=== PATIENT | male | born 1985 | race Caucasian/White ===

== ENCOUNTER 2017-04-09 11:38 | Emergency (ER) | payer SELFPAY ==
[2017-04-09 11:42] VITALS: BMI 36.2
--- NOTE | 2017-04-09 11:47 | DR.GENAD ---
HPI - PCP Primary Care Physician: NONE - HPI Comment HPI Comment: PATIENT WOKE UP THIS AN WITH PRECORDIAL CHEST PRESSURE 10/10 RADIATING TO LEFT ARM PIT ASSOCIATED WITH WEAKNESS. PAIN CONSTANT WITH INTWEMITTENT EXACERBATION. PAIN CURRENTLY PRESENT IN ED. HAVE SIGNIFICANT FAMILY HIST OF CAD. HIS MOM HAD TRIPLE BYPASS IN HER 30S. GRANDMOTHER ON MOTHERS SIDE IN HER 40S FROM [place]. SEVERAL MEMBERS OF HIS FAMILY WITH CAD. - Complaint/Symptoms Chief Complaint Doctors Comments: CHEST PAIN FOR SEVERAL HOURS. Chief Complaint:: PT HAVING CHEST PAIN THAT STARTED THIS MORNING - Nurses notes reviewed Nurses Notes Review: Yes - Source History Provided: Patient - Mode of Arrival Mode of Arrival: Ambulatory - Timing Onset of Chief Complaint: 04/09/17 Came on: Suddenly - Duration Duration: Constant Duration: Hours PMH - PMH Past Medical History: No Past Surgical History: No - Family History History of Family Medical Conditions: No - Social History Does patient currently use any type of tobacco product: No Have you used tobacco products in the last 12 months: No Type of Tobacco Use: None Does any household member use tobacco: No Alcohol Use: None Do you use any recreational Drugs:: No Lives With: Family Lives Where: Assisted Care - infectious screening In the last 2 months have you had wt loss of >10#?: NO Have you had fever, night sweats or hemotysis?: No Have you traveled outside the country in the last 6 months?: No Isolation: Standard ROS - Review of Systems Constitutional: Weakness, Fatigue Eyes: No Symptoms Reported ENTM: No Symptoms Reported Respiratoy: No Symptoms Reported Cardiovascular: Chest Pain Gastrointestinal/Abdominal: No Symptoms Reported Genitourinary: No Symptoms Reported Neurological: No Symptoms Reported Musculoskeletal: No Symptoms Reported Integumentary: No Symptoms Reported Hematologic/Lymphatic: No Symptoms Reported Endocrine: No Symptoms Reported All Other Systems: Reviewed and Negative PE - Vital Signs Vitals: Temperature 97.9 F Pulse Rate [Right Brachial] 60 Pulse Rate 70 Respiratory Rate 18 Blood Pressure [Right Arm] 135/77 Blood Pressure 182/105 O2 Sat by Pulse Oximetry 100 - General Limitations: No Limitations General Appearance: Alert - Head Head Exam: Normal Inspection - Eyes Eye exam: Normal Appearance - ENT ENT Exam: Normal External Ear Exam External Ear Exam: Normal External Inspection TM/Canal Exam: Bilateral Normal Nose Exam: Normal Nose Exam Mouth Exam: Normal Inspection Throat Exam: Normal Inspection - Neck Neck Exam: Trachea Midline. negative: Tenderness, Meningismus, Lymphadenopathy - Chest Chest Inspection: Symmetric Chest Wall Rise - Respiratory Respiratory Exam: Normal Lung Sounds Bilat Respiratory Exam: Bilateral Clear to Auscultation - Cardiovascular Cardiovascular Exam: Regular Rate, Normal Rhythm, Normal Heart Sounds - Abdominal Exam Abdominal Exam: Normal Bowel Sounds, Soft. negative: Tenderness - Extremities Extremities Exam: Normal Inspection - Back Back Exam: Normal Inspection - Neurologic Neurological Exam: Alert, Oriented X3, CN II-XII Intact, Normal Gait, Reflexes Normal. negative: Motor Sensory Deficit - Psychiatric Psychiatric Exam: Anxious - Skin Skin Exam: Normal Color MDM - Additional Information Additional Information Obtained From: Family - Differential Diagnosis Differential Diagnosis: CHEST PAIN Course - Treatment Treatment: SEE ORDERS. ASPIRIN AND S/L NITRO IN ED. PAIN RESOLVE. - Consultation Consultation Comments: DISCUSS PATIENT WITH DR. GANNON. HE WILL ADMIT PATIENT. - Education/Counseling Education/Counseling: Patient, Family, Education Educated On: Diagnosis ROR - Labs Reviewed Laboratory Results Reviewed?: Yes Result Diagrams: 04/09/17 12:03 04/09/17 12:03 Laboratory: WBC 7.7 X10^3/uL (3.6-10.0) 04/09/17 12:03 RBC 5.41 X10^6/uL (4.7-6.0) 04/09/17 12:03 Hgb 16.4 g/dL (13.5-18.0) 04/09/17 12:03 Hct 46.5 % (42.0-54.0) 04/09/17 12:03 MCV 85.9 fL (80.0-100.0) 04/09/17 12:03 MCH 30.4 pg (27.0-34.0) 04/09/17 12:03 MCHC 35.4 g/dL (33.0-35.0) H 04/09/17 12:03 RDW 13.7 % (11.6-16.5) 04/09/17 12:03 Plt Count 145 X10^3/uL (150.0-450.0) L 04/09/17 12:03 MPV 9.7 fL (7.4-11.0) 04/09/17 12:03 Neut % 58.8 % (42.0-75.0) 04/09/17 12:03 Lymph % 31.0 % (21.0-51.0) 04/09/17 12:03 Greenlee % 6.4 % (0.0-13.0) 04/09/17 12:03 Eos % 3.1 % (0.9-2.9) H 04/09/17 12:03 Baso % 0.7 % (0.2-1.0) 04/09/17 12:03 Neut # 4.5 x10^3/uL (2.2-4.8) 04/09/17 12:03 Lymph # 2.4 X10^3/uL (1.3-2.9) 04/09/17 12:03 Greenlee # 0.5 x10^3/uL (0.3-0.8) 04/09/17 12:03 Eos # 0.2 x10^3/uL (0.0-0.2) 04/09/17 12:03 Baso # 0.1 X10^3/uL (0.0-0.1) 04/09/17 12:03 Absolute Nucleated RBC 0.0 /100WBC 04/09/17 12:03 INR Target Range - 04/09/17 12:03 INR 0.92 (0.8-1.3) 04/09/17 12:03 PTT 30.3 SECONDS (22.9-36.5) 04/09/17 12:03 PTT Comment - 04/09/17 12:03 D-Dimer < 100 ng/mL (0-400) 04/09/17 12:03 Sodium 142 mmol/L (136-145) 04/09/17 12:03 Corrected Sodium TNP 04/09/17 12:03 Potassium 4.3 mmol/L (3.5-5.1) 04/09/17 12:03 Chloride 106 mmol/L (98-107) 04/09/17 12:03 Carbon Dioxide 31.3 mmol/L (21-32) 04/09/17 12:03 BUN 9 mg/dL (7-18) 04/09/17 12:03 Creatinine 1.02 mg/dL (0.70-1.30) 04/09/17 12:03 Est GFR (MDRD) Af Amer > 60 (>60) 04/09/17 12:03 Est GFR (MDRD) Non-Af > 60 (>60) 04/09/17 12:03 Glucose 97 mg/dL (65-99) 04/09/17 12:03 Calcium 9.5 mg/dL (8.5-10.1) 04/09/17 12:03 Corrected Calcium TNP 04/09/17 12:03 Magnesium 2.1 mg/dL (1.7-2.9) 04/09/17 12:03 Total Bilirubin 0.40 mg/dL (0.2-1.0) 04/09/17 12:03 AST 16 Units/L (15-37) 04/09/17 12:03 ALT 28 Units/L (12-78) 04/09/17 12:03 Alkaline Phosphatase 117 Units/L (46-116) H 04/09/17 12:03 Creatine Kinase 174 Units/L (39-308) 04/09/17 12:03 CK-MB (CK-2) 1.0 ng/mL (0-4.0) 04/09/17 12:03 CK/CKMB % Calc 0.6 % (<4) 04/09/17 12:03 Troponin I < 0.02 ng/mL (0-1.5) 04/09/17 12:03 Total Protein 7.7 g/dL (6.4-8.2) 04/09/17 12:03 Albumin 4.0 g/dL (3.4-5.0) 04/09/17 12:03 Globulin 3.7 g/dL (2.5-4.5) 04/09/17 12:03 Albumin/Globulin Ratio 1.1 Ratio (1.1-2.1) 04/09/17 12:03 Triglycerides 155 mg/dL (0-150) H 04/09/17 12:03 Cholesterol 172 mg/dL (0-200) 04/09/17 12:03 LDL Cholesterol, Calc 96 mg/dL (0-100) 04/09/17 12:03 HDL Cholesterol 45 mg/dL (40-60) 04/09/17 12:03 Cholesterol/HDL Ratio 3.8 (0.0-5.0) 04/09/17 12:03 H. pylori IgG Antibody Negative (NEGATIVE) 04/09/17 12:03 - XRAY XRAY Interpreted by: Radiologist XRAY Findings: REPORT DISCUSS WITH PATIENT. - EKG Rhythm: NSR (EKG NOTED) - Diagnosis Discharge Problem: Chest pain Qualifiers: Chest pain type: precordial pain Qualified Code(s): R07.2 - Precordial pain - Discharge Plan Disposition: 09 ADMITTED INPATIENT Condition: Stable - Follow ups/Referrals - Instructions
--- NOTE | 2017-04-09 12:02 | RAD ---
HISTORY: Chest pain Study: Chest one view Comparison: None Findings: The trachea is midline. The cardiac silhouette is unremarkable. The lungs are clear without focal i nfiltrate or effusion. The bony thorax is unremarkable. IMPRESSION: 1. No acute cardiopulmonary disease. Reported By:
[2017-04-09] MEDS ORDERED: NITROSTAT SL PRN (12:30)
[2017-04-09 12:32] LABS: BASOPHILS # (AUTO) 0.1 X10^3/uL (0.0-0.1); BASOPHILS % (AUTO) 0.7 % (0.2-1.0); EOSINOPHILS # (AUTO) 0.2 x10^3/uL (0.0-0.2); EOSINOPHILS % (AUTO) 3.1 % (0.9-2.9); HEMATOCRIT 46.5 % (42.0-54.0); HEMOGLOBIN 16.4 g/dL (13.5-18.0); LYMPHOCYTES # (AUTO) 2.4 X10^3/uL (1.3-2.9); MEAN CORPUSCULAR HEMOGLOBIN 30.4 pg (27.0-34.0); MEAN CORPUSCULAR HGB CONC 35.4 g/dL (33.0-35.0); MEAN CORPUSCULAR VOLUME 85.9 fL (80.0-100.0); MEAN PLATELET VOLUME 9.7 fL (7.4-11.0); MONOCYTES # (AUTO) 0.5 x10^3/uL (0.3-0.8); MONOCYTES % (AUTO) 6.4 % (0.0-13.0); NEUTROPHILS # (AUTO) 4.5 x10^3/uL (2.2-4.8); NEUTROPHILS % (AUTO) 58.8 % (42.0-75.0); PLATELET COUNT 145 X10^3/uL (150.0-450.0); RED BLOOD COUNT 5.41 X10^6/uL (4.7-6.0); RED CELL DISTRIBUTION WIDTH 13.7 % (11.6-16.5); WHITE BLOOD COUNT 7.7 X10^3/uL (3.6-10.0)
[2017-04-09 12:36] LABS: BLOOD UREA NITROGEN 9 mg/dL (7-18); CALCIUM 9.5 mg/dL (8.5-10.1); CARBON DIOXIDE 31.3 mmol/L (21-32); CHLORIDE 106 mmol/L (98-107); CREATININE 1.02 mg/dL (0.70-1.30); GLUCOSE 97 mg/dL (65-99); SODIUM 142 mmol/L (136-145); TROPONIN I < 0.02 ng/mL (0-1.5); eGFR BLACK RACES > 60 (>60); eGFR NON BLACK RACES > 60 (>60)
[2017-04-09 12:40] LABS: ALANINE AMINOTRANSFERASE 28 Units/L (12-78); ALKALINE PHOSPHATASE 117 Units/L (46-116); ASPARTATE AMINO TRANSFERASE 16 Units/L (15-37); CHOL/HDL RATIO 3.8 (0.0-5.0); CHOLESTEROL 172 mg/dL (0-200); CKMB % 0.6 % (<4); CREATINE KINASE 174 Units/L (39-308); HDL CHOLESTEROL 45 mg/dL (40-60); MAGNESIUM 2.1 mg/dL (1.7-2.9); TOTAL PROTEIN 7.7 g/dL (6.4-8.2); TRIGLYCERIDES 155 mg/dL (0-150)
[2017-04-09 12:44] LABS: D DIMER < 100 ng/mL (0-400)
[2017-04-09] MEDS ORDERED: ASPIRIN 81 MG CHEWTAB PO SCH (13:00)
[2017-04-09] MEDS ORDERED: MORPHINE SULFATE INJ 2 MG IVP PRN (13:32)
[2017-04-09] MEDS ORDERED: ZOFRAN INJ 4 MG VIAL IVP PRN (13:38)
--- NOTE | 2017-04-09 15:31 | US ---
HISTORY: Epigastric pain Study: Right upper quadrant ultrasound Comparison: None Technique: Multiple grayscale sonographic images were obtained. Findings: The liver was normal in size and configuration and without cysts, mass, or biliary ductal dilatation. Cholelithiasis is present. There is mild thickening of the gallbladder wall but no evidence for intr amural or pericholecystic fluid. The common duct measured 5.4 millimeters. The right kidney measured 9.1 x 5.5 x 6.1 centimeters and demonstrated no solid masses, hydronephrosis, stones, or perinephric fluid collections. The pancreas was not well visualized. IMPRESSION: Cholelithiasis with mild gallbladder wall thickening. Developing cholecystitis cannot be excluded. Cl inical correlation is recommended. Nuclear medicine biliary scan could be obtained if clinically conor cated. Reported By:
[2017-04-09] MEDS: NITRO-BID OINT 2% Multi-Dose tube TD SCH ×2 (15:33→20:14)
--- NOTE | 2017-04-09 18:37 | DR.CONSULT ---
Consult - Consultation for Day of: Date: 04/09/17 - Chief Complaint Chief Complaint: Left chest pain. - Allergies Allergies/Adverse Reactions: Allergies Allergy/AdvReac Type Severity Reaction Status Date / Time No Known Drug Allergies Allergy Verified 04/09/17 11:38 - History of Present Illness History of Present Illness: The patient is a 31 yo M who presented to the ER this am with left chest pain. The patient reports the pain woke him this morning. (-) N/V/cough. The patient has a significant f/h early CAD with mother having disease in her 30's requiring CABG. (-) SOB. The patient is a production truck driver. D.dimer testing < 100 in ER. The patient reports decrease in pain with nitroglycerin. (-) dysphagia but (+) h/o GERD. Currently, cardiac w/ u is (-). An abdominal u/s was obtained that demonstrates cholelithiasis and possible cholecystitis. The patient denies RUQ pain or intolerance to fatty foods. - Past Medical History Past Medical History: GERD - Past Surgical History Surgical History: No History - Family History Family Medical History: Diabetes Mellitus, Coronary Artery Disease - Social History Does patient currently use any type of tobacco product: No Have you used tobacco products in the last 12 months: No Type of Tobacco Use: None Does any household member use tobacco: Yes Alcohol Use: Occasionally Drug Use: None - Medications Home Medications: NK [NK] 04/09/17 [History Confirmed 04/09/17] - Review of Systems Constitutional: No Symptoms Reported Eyes: No Symptoms Reported ENT: No Symptoms Reported Respiratory: No Symptoms Reported Cardiovascular: Chest Pain Gastrointestinal: No Symptoms Reported Genitourinary: No Symptoms Reported Musculoskeletal: No Symptoms Reported Skin: No Symptoms Reported Neurological: No Symptoms Reported - Physical Exam Vital Signs: Temperature 98.2 F Pulse Rate [Right Brachial] 70 Pulse Rate 70 Respiratory Rate 20 Blood Pressure [Right Arm] 146/84 Blood Pressure 182/105 O2 Sat by Pulse Oximetry 97 Oriented: Normal Eyes: Normal Throat: Normal Respiratory: Clear Throughout Cardiovascular: Normal Auscultation: Bowel Sounds: Normal Palpation: Normal Tenderness: Normal Skin: Normal Musculoskeletal: Normal Psychiatric: Normal Mood Description: Calm Affect: Normal Speech Pattern: Clear, Appropriate - Plan Plan: 31 yo M with cholelithiasis and left chest pain. Unclear etiology. Pain improved with nitro. (-) h/o nausea or RUQ pain. Pain was not associated with PO intake. Imaging noted. Initial concerns for PE less with (-) d.dimer. WBC wnl. On exam, NTTP RUQ and (-) Cardoza's sign. Recommend continued cardiac monitoring and check HIDA. Will follow with you.
[2017-04-09 21:10] LABS: CKMB % 0.8 % (<4); CREATINE KINASE 131 Units/L (39-308); CREATINE KINASE MB < 1.0 ng/mL (0-4.0); TROPONIN I < 0.02 ng/mL (0-1.5)
[2017-04-09] MEDS ORDERED: TYLENOL 325 MG TAB PO PRN (22:18)
[2017-04-09] MEDS: NORCO 5/325 MG TAB PO PRN (22:50)
[2017-04-10] MEDS: NITRO-BID OINT 2% Multi-Dose tube TD SCH ×5 (02:13→22:21)
[2017-04-10 03:02] LABS: BASOPHILS # (AUTO) 0.1 X10^3/uL (0.0-0.1); BASOPHILS % (AUTO) 0.5 % (0.2-1.0); EOSINOPHILS # (AUTO) 0.3 x10^3/uL (0.0-0.2); EOSINOPHILS % (AUTO) 2.3 % (0.9-2.9); HEMATOCRIT 43.2 % (42.0-54.0); HEMOGLOBIN 15.1 g/dL (13.5-18.0); LYMPHOCYTES # (AUTO) 2.7 X10^3/uL (1.3-2.9); MEAN CORPUSCULAR HEMOGLOBIN 29.9 pg (27.0-34.0); MEAN CORPUSCULAR VOLUME 85.4 fL (80.0-100.0); MEAN PLATELET VOLUME 9.9 fL (7.4-11.0); MONOCYTES # (AUTO) 0.8 x10^3/uL (0.3-0.8); MONOCYTES % (AUTO) 6.7 % (0.0-13.0); NEUTROPHILS # (AUTO) 7.5 x10^3/uL (2.2-4.8); NEUTROPHILS % (AUTO) 66.5 % (42.0-75.0); PLATELET COUNT 163 X10^3/uL (150.0-450.0); RED BLOOD COUNT 5.06 X10^6/uL (4.7-6.0); RED CELL DISTRIBUTION WIDTH 13.3 % (11.6-16.5); WHITE BLOOD COUNT 11.2 X10^3/uL (3.6-10.0)
[2017-04-10 03:14] LABS: ALANINE AMINOTRANSFERASE 26 Units/L (12-78); ALBUMIN 3.6 g/dL (3.4-5.0); ALKALINE PHOSPHATASE 94 Units/L (46-116); ASPARTATE AMINO TRANSFERASE 15 Units/L (15-37); BLOOD UREA NITROGEN 8 mg/dL (7-18); CALCIUM 8.8 mg/dL (8.5-10.1); CARBON DIOXIDE 26.7 mmol/L (21-32); CHLORIDE 106 mmol/L (98-107); CREATININE 0.99 mg/dL (0.70-1.30); GLUCOSE 105 mg/dL (65-99); SODIUM 143 mmol/L (136-145); TOTAL PROTEIN 6.8 g/dL (6.4-8.2); eGFR BLACK RACES > 60 (>60); eGFR NON BLACK RACES > 60 (>60)
[2017-04-10 03:29] LABS: CKMB % 0.9 % (<4); CREATINE KINASE 112 Units/L (39-308); CREATINE KINASE MB < 1.0 ng/mL (0-4.0); TROPONIN I < 0.02 ng/mL (0-1.5)
--- NOTE | 2017-04-10 09:05 | DR.H&P ---
H&P - History & Physical for Day of: H&P Date: 04/09/17 - Chief Complaint Chief Complaint: CHEST PAIN - Allergies Allergies/Adverse Reactions: Allergies Allergy/AdvReac Type Severity Reaction Status Date / Time No Known Drug Allergies Allergy Verified 04/09/17 11:38 - History of Present Illness History of Present Illness: IS A 31 YEAR OLD MALE WHO PRESENTED TO THE EMERGENCY ROOM WITH COMPLAINTS OF CHEST PAIN THAT BEGAN 3-4 HOURS PRIOR TO ARRIVING AT ER. HE REPORTS RADIATION TO LEFT ARM PIT AND WEAKNESS. HE REPORTS CONSTANT, MILD PAIN THAT WORSENS AT TIMES. PATIENT'S FAMILY HAS A KNOWN HISTORY OF CARDIAC DISEASE. PATIENT'S MOTHER AND GRANDMOTHER IN THEIR 40S FROM [place]. HE ALSO REPORTS COMPLAINTS OF RUQ ABDOMINAL PAIN. ON ARRIVAL TO ER, VITALS WERE 97.9-70-20-100%-185/105. PATIENT DOES NOT HAVE A KNOWN HISTORY OF HTN. CBC WNL EXCEPT MCHC 35.4, PLT COUNT 145, EOS% 3.1. CMP WNL EXCEPT ALKALINE PHOSPHATASE 117, TRIGLYCERIDES 155. H-PYLORI NEGATIVE. CARDIAC ENZYMES WNL. EKG REPORTS SINUS RHYTHM WITH RATE OF 68. A GALLBLADDER US WAS OBTAINED. IT REPORTED CHOLELITHIASIS WITH MILD GALLBLADDER WALL THICKENING. CHEST XRAY NEGATIVE. HE WAS GIVEN NITROGLYCERINE AND ASPIRIN IN ER. HE REPORTED DECREASE IN PAIN WITH NITROGLYCERINE. WE ADMITTED THE PATIENT FOR FURTHER TREATMENT AND EVALUATION. WE PLAN TO CONTINUE TO MONITOR SERIAL CARDIAC ENZYMES AND EKG, CONSULT WITH , START MORPHINE 4MG IV Q6H PRN, ASPIRIN 325MG DAILY, AND NITRO FOR CHEST PAIN. WE WILL RECHECK LABS AND FOLLOW UP WITH PATIENT IN AM. - Past Medical History Past Medical History: GERD - Past Surgical History Surgical History: No History - Family History Family Medical History: Diabetes Mellitus, Coronary Artery Disease - Social History Does patient currently use any type of tobacco product: No Have you used tobacco products in the last 12 months: No Type of Tobacco Use: None Does any household member use tobacco: Yes Alcohol Use: Occasionally Drug Use: None - Medications Home Medications: NK [NK] 04/09/17 [History Confirmed 04/09/17] - Review of Systems Constitutional: Weakness Eyes: No Symptoms Reported ENT: No Symptoms Reported Respiratory: No Symptoms Reported Cardiovascular: Chest Pain, See HPI Gastrointestinal: Abdominal Pain Genitourinary: No Symptoms Reported Musculoskeletal: No Symptoms Reported Skin: No Symptoms Reported Neurological: No Symptoms Reported - Physical Exam Vital Signs: Temperature 98.1 F Pulse Rate [Right Brachial] 68 Pulse Rate 70 Respiratory Rate 20 Blood Pressure [Right Arm] 114/68 Blood Pressure 182/105 O2 Sat by Pulse Oximetry 97 Oriented: Normal Eyes: Normal Ear: Normal Nose: Normal Throat: Normal Respiratory: Clear Throughout Cardiovascular: Normal. negative: S3, S4, Murmur : Normal Auscultation: Bowel Sounds: Normal Palpation: Normal Tenderness: RUQ Skin: Normal Musculoskeletal: Normal Psychiatric: Normal Mood Description: Calm Affect: Normal Speech Pattern: Clear - Assessment/Plan (1) Cholelithiasis Qualifiers: Cholelithiasis location: gallbladder Cholecystitis presence: without cholecystitis Biliary obstruction: without biliary obstruction Qualified Code(s): K80.20 - Calculus of gallbladder without cholecystitis without obstruction Status: Acute Plan: CHECK HIDA SCAN, CONTINUE TO MONITOR (2) Chest pain Qualifiers: Chest pain type: precordial pain Qualified Code(s): R07.2 - Precordial pain Status: Acute Plan: ASPIRIN, NITROGLYCERINE, MONITOR CARDIAC ENZYMES AND EKG.
[2017-04-10] MEDS: ASPIRIN PO SCH (09:49)
--- NOTE | 2017-04-10 11:10 | PCM.PROG ---
Progress Note - Progress Note for Day of Date: 04/10/17 - Subjective Subjective: IS ALERT AND ORIENTED, LYING IN BED ON MORNING ROUNDS. IS AT BEDSIDE. HE IS NOTED WITH COMPLAINTS OF ABDOMINAL PAIN THIS AM. HE DENIES CHEST PAIN OR SHORTNESS OF BREATH THIS MORNING. LUNGS ARE CLEAR TO AUSCULTATION, BOWEL SOUNDS NORMAL IN ALL QUADRANTS. VITALS THIS AM ARE 98.1-68- 20-97%-114/68. CBC WNL EXCEPT WBC 11.2. CMP WNL EXCEPT GLUCOSE 105. CARDIAC ENZYMES AND EKGS WNL. CONSULTED WITH PATIENT LAST NIGHT. HE ORDERED A HIDA SCAN FOR THIS MORNING. WE WILL OBTAIN AN ECHO DUE TO PATIENT'S FAMILY HISTORY OF HEART DISEASE TO CLEAR PATIENT IN THE EVENT THAT AND PATIENT OPT FOR SURGERY. WE WILL PLAN TO RECHECK LABS AND FOLLOW UP WITH PATIENT IN AM. - Past Medical Family Social History Past Med/Fam/Surg Hx: No changes since H&P Allergies: Allergies No Known Drug Allergies Allergy (Verified 04/09/17 11:38) - Review of Systems ROS: No change since H&P - Vital Signs and I&O's Vital Signs: Temperature 98.1 F Pulse Rate [Right Brachial] 68 Pulse Rate 70 Respiratory Rate 20 Blood Pressure [Right Arm] 114/68 Blood Pressure 182/105 O2 Sat by Pulse Oximetry 97 Intake and Output: Intake & Output 04/07/17 04/08/17 04/09/17 04/10/17 11:59 11:59 11:59 11:59 Intake Total 260 Balance 260 - Physical Exam Oriented: Normal Eyes: Normal Ear: Normal Nose: Normal Throat: Normal Respiratory: Normal Cardiovascular: Normal. negative: S3, S4, Murmur : Normal Auscultation: Bowel Sounds: Normal Palpation: Normal Tenderness: RUQ Skin: Normal Musculoskeletal: Normal Psychiatric: Normal Mood Description: Calm Affect: Normal Speech Pattern: Clear - Laboratory and Diagnostics Result Diagrams: 04/10/17 02:29 04/10/17 02:29 Labs: Laboratory WBC 11.2 X10^3/uL (3.6-10.0) H 04/10/17 02:29 RBC 5.06 X10^6/uL (4.7-6.0) 04/10/17 02:29 Hgb 15.1 g/dL (13.5-18.0) 04/10/17 02: Hct 43.2 % (42.0-54.0) 04/10/17 02: MCV 85.4 fL (80.0-100.0) 04/10/17 02: MCH 29.9 pg (27.0-34.0) 04/10/17 02: MCHC 35.0 g/dL (33.0-35.0) 04/10/17 02: RDW 13.3 % (11.6-16.5) 04/10/17 02: Plt Count 163 X10^3/uL (150.0-450.0) 04/10/17 02: MPV 9.9 fL (7.4-11.0) 04/10/17 02: Neut % 66.5 % (42.0-75.0) 04/10/17 02: Lymph % 24.0 % (21.0-51.0) 04/10/17 02: Catron % 6.7 % (0.0-13.0) 04/10/17 02: Eos % 2.3 % (0.9-2.9) 04/10/17 02: Baso % 0.5 % (0.2-1.0) 04/10/17 02: Neut # 7.5 x10^3/uL (2.2-4.8) H 04/10/17 02: Lymph # 2.7 X10^3/uL (1.3-2.9) 04/10/17 02: Catron # 0.8 x10^3/uL (0.3-0.8) 04/10/17 02: Eos # 0.3 x10^3/uL (0.0-0.2) H 04/10/17 02: Baso # 0.1 X10^3/uL (0.0-0.1) 04/10/17 02: Absolute Nucleated RBC 0.0 /100WBC 04/10/17 02:29 INR Target Range - 04/10/17 02: INR 0.98 (0.8-1.3) 04/10/17 02: PTT 30.3 SECONDS (22.9-36.5) 04/09/17 12:03 PTT Comment - 04/09/17 12:03 D-Dimer < 100 ng/mL (0-400) 04/09/17 12:03 Sodium 143 mmol/L (136-145) 04/10/17 02:29 Corrected Sodium TNP 04/10/17 02:29 Potassium 4.2 mmol/L (3.5-5.1) 04/10/17 02:29 Chloride 106 mmol/L (98-107) 04/10/17 02:29 Carbon Dioxide 26.7 mmol/L (21-32) 04/10/17 02:29 BUN 8 mg/dL (7-18) 04/10/17 02:29 Creatinine 0.99 mg/dL (0.70-1.30) 04/10/17 02:29 Est GFR (MDRD) Af Amer > 60 (>60) 04/10/17 02:29 Est GFR (MDRD) Non-Af > 60 (>60) 04/10/17 02:29 Glucose 105 mg/dL (65-99) H 04/10/17 02:29 Calcium 8.8 mg/dL (8.5-10.1) 04/10/17 02:29 Corrected Calcium TNP 04/10/17 02:29 Magnesium 2.1 mg/dL (1.7-2.9) 04/09/17 12:03 Total Bilirubin 0.50 mg/dL (0.2-1.0) 04/10/17 02:29 AST 15 Units/L (15-37) 04/10/17 02:29 ALT 26 Units/L (12-78) 04/10/17 02:29 Alkaline Phosphatase 94 Units/L (46-116) 04/10/17 02:29 Creatine Kinase 112 Units/L (39-308) 04/10/17 02:29 CK-MB (CK-2) < 1.0 ng/mL (0-4.0) 04/10/17 02:29 CK/CKMB % Calc 0.9 % (<4) 04/10/17 02:29 Troponin I < 0.02 ng/mL (0-1.5) 04/10/17 02:29 Total Protein 6.8 g/dL (6.4-8.2) 04/10/17 02:29 Albumin 3.6 g/dL (3.4-5.0) 04/10/17 02:29 Globulin 3.2 g/dL (2.5-4.5) 04/10/17 02:29 Albumin/Globulin Ratio 1.1 Ratio (1.1-2.1) 04/10/17 02:29 Triglycerides 155 mg/dL (0-150) H 04/09/17 12:03 Cholesterol 172 mg/dL (0-200) 04/09/17 12:03 LDL Cholesterol, Calc 96 mg/dL (0-100) 04/09/17 12:03 HDL Cholesterol 45 mg/dL (40-60) 04/09/17 12:03 Cholesterol/HDL Ratio 3.8 (0.0-5.0) 04/09/17 12:03 H. pylori IgG Antibody Negative (NEGATIVE) 04/09/17 12:03 - Plan (1) Cholelithiasis Status: Acute Qualifiers: Cholelithiasis location: gallbladder Cholecystitis presence: without cholecystitis Biliary obstruction: without biliary obstruction Qualified Code(s): K80.20 - Calculus of gallbladder without cholecystitis without obstruction Plan: CHECK HIDA SCAN, CONTINUE TO MONITOR (2) Chest pain Status: Acute Qualifiers: Chest pain type: precordial pain Qualified Code(s): R07.2 - Precordial pain Plan: ASPIRIN, NITROGLYCERINE, MONITOR CARDIAC ENZYMES AND EKG.
--- NOTE | 2017-04-10 14:32 | NM ---
HISTORY: Right upper quadrant pain Study: Nuclear medicine hepatobiliary scan Comparison: Abdominal ultrasound same date Technique: Patient received intravenous injection of 5.2 millicuries technetium 99 M Choletec . Seque ntial images of the right upper quadrant were carried out 4 hours post injection. Findings: There is good visualization of the hepatic per, biliary ducts, and free passage of tracer into the du odenum. On the 4 hour delayed image there is still no visualization of the gallbladder. This indicate s cystic duct obstruction. IMPRESSION: Nonvisualization of the gallbladder 4 hours post injection indicating cystic duct obstruction. Reported By:
[2017-04-11] MEDS: NITRO-BID OINT 2% Multi-Dose tube TD SCH ×3 (03:13→20:48)
[2017-04-11 05:18] LABS: BASOPHILS % (AUTO) 0.4 % (0.2-1.0); EOSINOPHILS # (AUTO) 0.3 x10^3/uL (0.0-0.2); EOSINOPHILS % (AUTO) 4.1 % (0.9-2.9); HEMATOCRIT 43.4 % (42.0-54.0); HEMOGLOBIN 15.3 g/dL (13.5-18.0); LYMPHOCYTES % (AUTO) 37.8 % (21.0-51.0); MEAN CORPUSCULAR HEMOGLOBIN 30.3 pg (27.0-34.0); MEAN CORPUSCULAR HGB CONC 35.3 g/dL (33.0-35.0); MEAN CORPUSCULAR VOLUME 85.7 fL (80.0-100.0); MEAN PLATELET VOLUME 10.1 fL (7.4-11.0); MONOCYTES # (AUTO) 0.5 x10^3/uL (0.3-0.8); MONOCYTES % (AUTO) 6.1 % (0.0-13.0); NEUTROPHILS # (AUTO) 4.1 x10^3/uL (2.2-4.8); NEUTROPHILS % (AUTO) 51.6 % (42.0-75.0); PLATELET COUNT 160 X10^3/uL (150.0-450.0); RED BLOOD COUNT 5.07 X10^6/uL (4.7-6.0); RED CELL DISTRIBUTION WIDTH 13.7 % (11.6-16.5); WHITE BLOOD COUNT 7.9 X10^3/uL (3.6-10.0)
[2017-04-11 05:26] LABS: ALANINE AMINOTRANSFERASE 25 Units/L (12-78); ALBUMIN 3.5 g/dL (3.4-5.0); ALKALINE PHOSPHATASE 87 Units/L (46-116); ASPARTATE AMINO TRANSFERASE 16 Units/L (15-37); BLOOD UREA NITROGEN 9 mg/dL (7-18); CALCIUM 8.9 mg/dL (8.5-10.1); CARBON DIOXIDE 29.1 mmol/L (21-32); CHLORIDE 106 mmol/L (98-107); CREATININE 1.09 mg/dL (0.70-1.30); GLUCOSE 90 mg/dL (65-99); SODIUM 140 mmol/L (136-145); TOTAL PROTEIN 7.1 g/dL (6.4-8.2); eGFR BLACK RACES > 60 (>60); eGFR NON BLACK RACES > 60 (>60)
--- NOTE | 2017-04-11 09:21 | PCM.PROG ---
Progress Note - Progress Note for Day of Date: 04/11/17 - Subjective Subjective: IS ALERT AND ORIENTED, LYING IN BED ON MORNING ROUNDS. IS AT BEDSIDE. HE CONTINUES WITH COMPLAINTS OF ABDOMINAL PAIN. LUNGS ARE CLEAR TO AUSCULTATION, BOWEL SOUNDS NORMAL IN ALL QUADRANTS. VITALS THIS AM ARE 98.1-62-20-97%-112/58. CBC WNL EXCEPT MCHD 35.3, EOS % 4.1, LYMPH # 3.0, EOS # 0.3. CMP WNL EXCEPT A/G RATIO 1.0. CARDIAC ENZYMES AND EKGS WNL. A HIDA SCAN WAS OBTAINED AND REPORTED NONVISUALIZATION OF THE GALLBLADDER 4 HOURS POST INJECTION INDICATING CYSTIC DUCT OBSTRUCTION. BASED ON NORMAL CARDIAC ENZYMES, NORMAL EKG, AND LABS, PATIENT IS CLEARED FOR CHOLECYSTECTOMY. WE WILL CONSULT WITH FOR SURGERY. - Past Medical Family Social History Past Med/Fam/Surg Hx: No changes since H&P Allergies: Allergies No Known Drug Allergies Allergy (Verified 04/09/17 11:38) - Review of Systems ROS: No change since H&P - Vital Signs and I&O's Vital Signs: Temperature 98.1 F Pulse Rate [Right Brachial] 62 Pulse Rate 70 Respiratory Rate 20 Blood Pressure [Right Arm] 112/58 Blood Pressure 182/105 O2 Sat by Pulse Oximetry 97 Intake and Output: Intake & Output 04/08/17 04/09/17 04/10/17 04/11/17 11:59 11:59 11:59 11:59 Intake Total 260 20 Balance 260 20 - Physical Exam Oriented: Normal Eyes: Normal Ear: Normal Nose: Normal Throat: Normal Respiratory: Normal Cardiovascular: Normal. negative: S3, S4, Murmur : Normal Auscultation: Bowel Sounds: Normal Palpation: Normal Tenderness: RUQ Skin: Normal Musculoskeletal: Normal Psychiatric: Normal Mood Description: Calm Affect: Normal Speech Pattern: Clear, Appropriate - Laboratory and Diagnostics Result Diagrams: 04/11/17 03:58 04/11/17 03:58 Labs: Laboratory WBC 7.9 X10^3/uL (3.6-10.0) 04/11/17 03:58 RBC 5.07 X10^6/uL (4.7-6.0) 04/11/17 03:58 Hgb 15.3 g/dL (13.5-18.0) 04/11/17 03:58 Hct 43.4 % (42.0-54.0) 04/11/17 03:58 MCV 85.7 fL (80.0-100.0) 04/11/17 03:58 MCH 30.3 pg (27.0-34.0) 04/11/17 03:58 MCHC 35.3 g/dL (33.0-35.0) H 04/11/17 03:58 RDW 13.7 % (11.6-16.5) 04/11/17 03:58 Plt Count 160 X10^3/uL (150.0-450.0) 04/11/17 03:58 MPV 10.1 fL (7.4-11.0) 04/11/17 03:58 Neut % 51.6 % (42.0-75.0) 04/11/17 03:58 Lymph % 37.8 % (21.0-51.0) 04/11/17 03:58 Barbour % 6.1 % (0.0-13.0) 04/11/17 03:58 Eos % 4.1 % (0.9-2.9) H 04/11/17 03:58 Baso % 0.4 % (0.2-1.0) 04/11/17 03:58 Neut # 4.1 x10^3/uL (2.2-4.8) 04/11/17 03:58 Lymph # 3.0 X10^3/uL (1.3-2.9) H 04/11/17 03:58 Barbour # 0.5 x10^3/uL (0.3-0.8) 04/11/17 03:58 Eos # 0.3 x10^3/uL (0.0-0.2) H 04/11/17 03:58 Baso # 0.0 X10^3/uL (0.0-0.1) 04/11/17 03:58 Absolute Nucleated RBC 0.1 /100WBC 04/11/17 03:58 INR Target Range - 04/10/17 02:29 INR 0.98 (0.8-1.3) 04/10/17 02:29 PTT 30.3 SECONDS (22.9-36.5) 04/09/17 12:03 PTT Comment - 04/09/17 12:03 D-Dimer < 100 ng/mL (0-400) 04/09/17 12:03 Sodium 140 mmol/L (136-145) 04/11/17 03:58 Corrected Sodium TNP 04/11/17 03:58 Potassium 3.8 mmol/L (3.5-5.1) 04/11/17 03:58 Chloride 106 mmol/L (98-107) 04/11/17 03:58 Carbon Dioxide 29.1 mmol/L (21-32) 04/11/17 03:58 BUN 9 mg/dL (7-18) 04/11/17 03:58 Creatinine 1.09 mg/dL (0.70-1.30) 04/11/17 03:58 Est GFR (MDRD) Af Amer > 60 (>60) 04/11/17 03:58 Est GFR (MDRD) Non-Af > 60 (>60) 04/11/17 03:58 Glucose 90 mg/dL (65-99) 04/11/17 03:58 Calcium 8.9 mg/dL (8.5-10.1) 04/11/17 03:58 Corrected Calcium TNP 04/11/17 03:58 Magnesium 2.1 mg/dL (1.7-2.9) 04/09/17 12:03 Total Bilirubin 0.60 mg/dL (0.2-1.0) 04/11/17 03:58 AST 16 Units/L (15-37) 04/11/17 03:58 ALT 25 Units/L (12-78) 04/11/17 03:58 Alkaline Phosphatase 87 Units/L (46-116) 04/11/17 03:58 Creatine Kinase 112 Units/L (39-308) 04/10/17 02:29 CK-MB (CK-2) < 1.0 ng/mL (0-4.0) 04/10/17 02:29 CK/CKMB % Calc 0.9 % (<4) 04/10/17 02:29 Troponin I < 0.02 ng/mL (0-1.5) 04/10/17 02:29 Total Protein 7.1 g/dL (6.4-8.2) 04/11/17 03:58 Albumin 3.5 g/dL (3.4-5.0) 04/11/17 03:58 Globulin 3.6 g/dL (2.5-4.5) 04/11/17 03:58 Albumin/Globulin Ratio 1.0 Ratio (1.1-2.1) L 04/11/17 03:58 Triglycerides 155 mg/dL (0-150) H 04/09/17 12:03 Cholesterol 172 mg/dL (0-200) 04/09/17 12:03 LDL Cholesterol, Calc 96 mg/dL (0-100) 04/09/17 12:03 HDL Cholesterol 45 mg/dL (40-60) 04/09/17 12:03 Cholesterol/HDL Ratio 3.8 (0.0-5.0) 04/09/17 12:03 H. pylori IgG Antibody Negative (NEGATIVE) 04/09/17 12:03 - Plan (1) Cholelithiasis Status: Acute Qualifiers: Cholelithiasis location: gallbladder Cholecystitis presence: without cholecystitis Biliary obstruction: without biliary obstruction Qualified Code(s): K80.20 - Calculus of gallbladder without cholecystitis without obstruction Plan: PLAN FOR CHOLECYSTECTOMY, CONTINUE TO MONITOR (2) Chest pain Status: Acute Qualifiers: Chest pain type: precordial pain Qualified Code(s): R07.2 - Precordial pain Plan: ASPIRIN, NITROGLYCERINE, MONITOR CARDIAC ENZYMES AND EKG.
[2017-04-11] MEDS ORDERED: NS 50 ML IV + SPIKE MINIBAG* 100 ML IV ONE (09:57)
[2017-04-11] MEDS ORDERED: ANCEF VIAL 1 GM ONE (09:57)
[2017-04-11] MEDS: NS 1000 ML 1,000 ML ONE ×2 (10:07→11:30)
[2017-04-11] MEDS ORDERED: FENTANYL INJ 250 mcg ONE (12:44)
[2017-04-11] MEDS ORDERED: MARCAINE 0.25% WITH EPI IJ ONE (13:15)
[2017-04-11] MEDS ORDERED: XYLOCAINE 1 % (PLAIN) IJ ONE (13:15)
[2017-04-11] MEDS ORDERED: NS IRRIGATION 3000 ML 3,000 ML IR ONE (13:55)
[2017-04-11] MEDS ORDERED: ROBINUL ONE ×2 (14:14→16:00)
[2017-04-11] MEDS ORDERED: DIPRIVAN VIAL ONE ×2 (14:14→16:00)
[2017-04-11] MEDS ORDERED: QUELICIN (OR ANECTINE) ONE ×2 (14:14→16:00)
[2017-04-11] MEDS ORDERED: ZEMURON ONE (14:14)
[2017-04-11] MEDS ORDERED: ULTANE GAS IN ONE ×2 (14:14→16:00)
[2017-04-11] MEDS ORDERED: VERSED ONE ×2 (14:14→16:00)
[2017-04-11] MEDS ORDERED: NEOSTIGMINE INJ ONE (14:14)
[2017-04-11] MEDS ORDERED: LR 1000 ML IV 1,000 ML IV ONE (15:23)
[2017-04-11] MEDS ORDERED: ZOFRAN INJ 4 MG VIAL IVP PRN (15:50)
[2017-04-11] MEDS ORDERED: PHENERGAN INJ 25 MG IVP PRN (15:50)
[2017-04-11] MEDS ORDERED: DILAUDID INJ IVP PRN (15:50)
[2017-04-11] MEDS ORDERED: REGLAN INJ 10 MG VIAL IVP PRN (15:50)
[2017-04-11] MEDS ORDERED: BENADRYL INJ 50 MG VIAL IVP PRN (15:50)
--- NOTE | 2017-04-11 15:59 | OR.GENERIC ---
Post-Op Note Generic - Post-Op Note Operative Report: Operative Report Date of Operation: April 11, 2017 Pre-Operative Diagnosis: Acute cholecystitis. Post-Operative Diagnosis: 1. Acute cholecystitis with severe inflammatory changes. 2. Cholelithiasis. Procedure: Laparoscopic cholecystectomy (Modifier 22 for extra 1 hour of dissection secondary to severe inflammatory changes). Surgeon: Kleber Monzon MD. Japanese Tutor: Odalis Garcia CRNA. Specimen: Gallbladder. Estimated blood loss: 150 mL. Complications: None. Summary: The patient is a 31 year old male who presented with acute cholecystitis. The patient was offered cholecystectomy. The risk and benefits of the procedure including difficulty with anesthesia, bleeding, infection, conversion to open procedure, bile leak, hernia formation, DVT, as well as PE were discussed with the patient. The patient understood these risks and requested the procedure. On April 11, 2017, the patient was brought to the operative theatre. A time out was performed verifying the patient and procedure. The patient received Ancef for pre-operative antibiosis. After satisfactory induction of general endotracheal anesthesia, the abdomen was prepped with Chloraprep and draped in the usual sterile fashion. The skin and subcutaneous tissue inferior to the umbilicus was anesthetized using local anesthetic. The skin was incised sharply. A 12 mm trocar was placed though the incision and into the peritoneal cavity using the Optiview technique. Carbon dioxide was infiltrated through this trocar to obtain a pneumoperitoneum of 15 mm Hg. A camera was placed through this trocar and swept in all directions. No injury was seen from entering the peritoneal cavity. A site was selected in the subxiphoid location for our 2nd trocar. The skin and fascia was anesthetized using local anesthetic. The skin was incised sharply. A 5 mm trocar was placed into the peritoneal cavity under direct visualization. In a similar manner, two additional 5 mm trocars were placed. The first was placed in the mid- clavicular line approximately 2 fingerbreadths inferior to the left costal margin and a second in the anterior axillary line approximately 2 fingerbreadths inferior to the left costal margin. The patient was placed in reverse Trendelenburg and rotated to the patients left. The gallbladder was grasped at the fundus and elevated cephalad and slightly lateral. Significant omental attachments were taken down using blunt dissection and electrocautery. Bleeding was controlled using 5 mm clips. The peritoneum on the medial and lateral aspects of the infundibulum of the gallbladder was scored using hook electrocautery. Using blunt dissection, the cystic artery and duct were isolated. Due to severe inflammatory changes, this required significant dissection. An extra hour was required to dissect the cystic artery and duct free. The critical view of safety was obtained. Both of these structures were divided between endoclips. The gallbladder was dissected free using hook electrocautery. The gallbladder was placed in an endobag and removed through the umbilical trocar site. This required lengthening the fascial incision to accommodate the gallbladder. The trocar and camera were placed back inside the abdomen. Our clips were noted in good position. A small branch of the cystic artery was seen with active bleeding. This was controlled with an endoclip. No further bleeding was seen. Bleeding of the gallbladder fossa was controlled using electrocautery. At this point, the 5 mm trocars were removed under direct visualization. No bleeding was seen. The umbilical trocar was then removed and pneumoperitoneum released. The fascia at the umbilicus was closed using a 0-Vicryl placed in a [id number] configuration. The skin edges at all incisions were re-approximated using inverted, interrupted 4-0 Monocryl sutures. Benzoin and Steri-strips were placed. Sterile dressings were placed. The patient was awakened and taken to the recovery room in stable condition. There were no complications. All counts were correct.
[2017-04-11] MEDS ORDERED: NORCURON INJ 10 MG VIAL ONE (16:00)
[2017-04-11] MEDS ORDERED: ZOFRAN INJ 4 MG VIAL ONE (16:00)
[2017-04-11] MEDS ORDERED: XYLOCAINE 1 % (PLAIN) ONE (16:00)
[2017-04-11] MEDS ORDERED: DYLOJECT INJ ONE (16:00)
[2017-04-11] MEDS: ASPIRIN PO SCH (18:20)
[2017-04-11] MEDS: NORCO 5/325 MG TAB PO PRN (20:49)
[2017-04-12] MEDS: NITRO-BID OINT 2% Multi-Dose tube TD SCH ×2 (02:29→08:19)
[2017-04-12 04:58] LABS: BASOPHILS % (AUTO) 0.2 % (0.2-1.0); EOSINOPHILS # (AUTO) 0.2 x10^3/uL (0.0-0.2); EOSINOPHILS % (AUTO) 1.7 % (0.9-2.9); HEMATOCRIT 43.2 % (42.0-54.0); HEMOGLOBIN 15.3 g/dL (13.5-18.0); LYMPHOCYTES # (AUTO) 2.6 X10^3/uL (1.3-2.9); LYMPHOCYTES % (AUTO) 28.1 % (21.0-51.0); MEAN CORPUSCULAR HEMOGLOBIN 30.7 pg (27.0-34.0); MEAN CORPUSCULAR HGB CONC 35.5 g/dL (33.0-35.0); MEAN CORPUSCULAR VOLUME 86.5 fL (80.0-100.0); MEAN PLATELET VOLUME 9.7 fL (7.4-11.0); MONOCYTES # (AUTO) 0.8 x10^3/uL (0.3-0.8); MONOCYTES % (AUTO) 8.1 % (0.0-13.0); NEUTROPHILS # (AUTO) 5.7 x10^3/uL (2.2-4.8); NEUTROPHILS % (AUTO) 61.9 % (42.0-75.0); PLATELET COUNT 151 X10^3/uL (150.0-450.0); RED CELL DISTRIBUTION WIDTH 13.4 % (11.6-16.5); WHITE BLOOD COUNT 9.3 X10^3/uL (3.6-10.0)
[2017-04-12 05:11] LABS: ALANINE AMINOTRANSFERASE 40 Units/L (12-78); ALBUMIN 3.4 g/dL (3.4-5.0); ALKALINE PHOSPHATASE 85 Units/L (46-116); ASPARTATE AMINO TRANSFERASE 33 Units/L (15-37); BLOOD UREA NITROGEN 11 mg/dL (7-18); CALCIUM 8.9 mg/dL (8.5-10.1); CARBON DIOXIDE 27.7 mmol/L (21-32); CHLORIDE 106 mmol/L (98-107); CREATININE 0.95 mg/dL (0.70-1.30); GLUCOSE 94 mg/dL (65-99); SODIUM 139 mmol/L (136-145); TOTAL PROTEIN 6.8 g/dL (6.4-8.2); eGFR BLACK RACES > 60 (>60); eGFR NON BLACK RACES > 60 (>60)
[2017-04-12 07:48] VITALS: BP 114/73
[2017-04-12] MEDS: ASPIRIN PO SCH (08:21)
[2017-04-12] MEDS: NORCO 5/325 MG TAB PO PRN (08:32)
== END 2017-04-12 11:40 | disposition home or self-care (01) ==
LOC: ER 11:51 → MED/SURG 13:44
PROVIDERS: ADMIT Internal Medicine; ATTEND Internal Medicine
PROC: 0FT44ZZ Resection of Gallbladder, Percutaneous Endoscopic Approach (ICD-10-PCS; principal; 2017-04-11 12:30)
DX: R07.2 Precordial pain (principal); K80.01 Calculus of gallbladder with acute cholecystitis with obstruction; M79.602 Pain in left arm; K21.9 Gastro-esophageal reflux disease without esophagitis; R10.84 Generalized abdominal pain; Z82.49 Family history of ischemic heart disease and other diseases of the circulatory system
CPT/HCPCS: 36415; 71010; 76705; 78226; 80053; 80061; 82550; 82553; 83735; 84484; 85025; 85378; 85610; 85730; 86677; 93005; 93010; 93306; 94760; 96365; 99284; A4216; A4222; S0020; G0378; J0330; J0690; J2001; J2250; J2405; J2710; J3010; J3490; J7120